=== PATIENT | male | born 1970 | race Caucasian/White ===

== ENCOUNTER 2020-01-08 13:47 | Emergency (ER) | payer OTHER, SELFPAY ==
[2020-01-08 14:07] VITALS: BP 159/105; PULSE 110; RESP 16; TEMP 39.5; O2SAT 97
--- NOTE | 2020-01-08 14:36 | ED.GENADULT ---
HPI - General Adult General Chief complaint: Upper Respiratory Infection Stated complaint: dizziness,body aches,chills Time Seen by Provider: 01/08/20 14:36 Source: patient Mode of arrival: ambulatory Limitations: no limitations History of Present Illness HPI narrative: 49-year-old male patient presents to the [facility] with complaints of fever and muscle aches that started yesterday. Patient states that Wednesday they went out to [facility] to go camping and celebrate the holiday with family. Patient states that they ended up coming back on Wednesday. Patient states he felt like he had some muscle pain last night but just ignored it and went on with his day today. Patient states he went out to mow the yard and when he came back and he states that the muscle pain and joint pain were worse with chills and a fever. Patient states he did take his fever at home and it was at 102. Patient states that his is immunocompromise because she has history of RA. Patient states no chest pain or shortness of breath. No tick bites that he is aware of. No rashes that he is aware of. Related Data Home Medications Medication Instructions Recorded Confirmed allopurinol 100 mg PO DIRECTED 01/08/20 01/08/20 Allergies Allergy/AdvReac Type Severity Reaction Status Date / Time No Known Allergies Allergy Unverified 01/08/20 14:02 Review of Systems Review of Systems: Narrative: CONSTITUTIONAL: Positive fever, chills, denies sweats. Positive fatigue EYES: Denies visual changes, redness, or discharge. ENT: Denies rhinorrhea, congestion, sore throat, or otalgia. CARDIOVASCULAR: Denies chest pain, palpitations, or edema. RESPIRATORY: Denies cough or dyspnea. GASTROINTESTINAL: Denies abdominal pain, nausea, vomiting, or diarrhea. GENITOURINARY: Denies dysuria or hematuria. SKIN: Denies rash or itching. MUSCULOSKELETAL: Denies back pain, positive joint pain, positive myalgia. NEUROLOGIC: Denies headache, numbness, or weakness. PSYCHIATRIC: Denies anxiety or depression. PMFSH Comments At the time of my signature I agree with nursing past medical history, surgical, social, and family history. There is no relevant family history pertinent to the presenting complaint. Exam Narrative: Exam Narrative: GENERAL: ill-appearing, well-nourished, and in no acute distress. HEAD: Normocephalic, atraumatic. EYES: PERRLA and EOMI. ENT: Nares clear, no rhinorrhea or epistaxis. Mucous membranes moist. Posterior pharynx no erythema, tonsillar edema, exudates or lesions present NECK: Supple. No lymphadenopathy CHEST: Clear to auscultation. No respiratory distress. Patient able talk in clear complete sentences. HEART: Regular rate and rhythm. No murmur heard. Normal peripheral pulses. ABDOMEN: Soft, nontender, nondistended, normal active bowel sounds. EXTREMITIES: Normal range of motion. No edema. SKIN: Warm, dry, no rash. NEURO: No focal deficits. Alert and oriented x3. Course Vital Signs Vital signs: Vital Signs Temperature 39.5 C H 01/08/20 14:07 Pulse Rate 110 H 01/08/20 14:07 Respiratory Rate 16 01/08/20 14:07 Blood Pressure 159/105 H 01/08/20 14:07 Pulse Oximetry 97 01/08/20 14:07 Temperature 39.5 C H 01/08/20 14:07 Pulse Rate 110 H 01/08/20 14:07 Respiratory Rate 16 01/08/20 14:07 Blood Pressure 159/105 H 01/08/20 14:07 Pulse Oximetry 97 01/08/20 14:07 Vital signs reviewed. The patient has been informed that they may have pre-hypertension or Hypertension based on a BP reading in the department. I recommend that the patient call the primary care provider listed on their discharge instructions or a physician of their choice this week to arrange follow up for further evaluation of possible pre-hypertension or Hypertension Medical Decision Making Differential Diagnosis Differential Diagnosis: Differential diagnosis: Allergic rhinitis, chronic sinusitis, tonsillitis, acute sinusitis, infectious mononucl
== END 2020-01-08 14:56 | disposition home or self-care (01) ==
PROVIDERS: Emergency Provider Nurse Practitioner Family; PCP Family Medicine
DX: M79.10 Myalgia, unspecified site (principal); R50.9 Fever, unspecified; Z20.828 Contact with and (suspected) exposure to other viral communicable diseases
CPT/HCPCS: 99213; G0463

== ENCOUNTER 2020-04-29 00:47 | Outpatient (CLI) | payer OTHER, SELFPAY ==
[2020-04-29 16:30] LABS: SARS-CoV-2 RNA PCR Negative
== END 2020-04-29 00:48 | disposition home or self-care (01) ==
LOC: ANHCOVIDDT 00:47
PROVIDERS: PCP Family Medicine; Visit Provider Internal Medicine Critical Care Medicine
DX: Z01.812 Encounter for preprocedural laboratory examination (principal); Z20.818 Contact with and (suspected) exposure to other bacterial communicable diseases
CPT/HCPCS: 87635; C9803; U0003

== ENCOUNTER 2020-05-01 07:15 | Outpatient (CLI) | payer OTHER, SELFPAY ==
--- NOTE | 2020-06-03 13:50 | WPDSLEEPSTUD ---
Sleep Study Date of Study: 05/01/20 Ordering Provider: Misbah Harp MD Interpreting Physician: Madeline Camarena MD Sleep Study Type: Split Polysomnogram Height: 1.88 m Weight: 145.15 kg Body Mass Index: 41.1 [place]: 5 Reason for Sleep Study Hypersomnia; history of sleep apnea, has been on CPAP in the past at 10 cm * basic sleep study February 27, 2010; mild obstructive sleep apnea with an AHI of 7.1, heavy snoring and oxygen desaturation to 89% * CPAP titration April 01, 2010; optimal pressure 10 cm Sleep History Ryley Bustillo is a 49 yeat-old man with a prior history of a sleep study 10 years ago. See above; was diagnosed in 2009. His sleep study was performed as part of the [employer] physical there is a positive family history with his father being treated for sleep apnea. He frequently snores and is frequently loud enough that others complain about it. He rarely awakens at night with heartburn, belching or coughing. He does not awaken from sleep feeling short of breath. He occasionally has trouble sleep with a cold. He does not gasp for breath at night. He rarely has breathing problems reported to him at night by others. He denies sweating excessively at night or having palpitations or noticing his heart pounding irregularly at night. He rarely falls asleep during the day, rarely involuntarily, never while driving. He does not have loss of muscle tone was strong emotion. He rarely has daytime difficulties due to excessive sleepiness, works as a local company intermodal truck driver. He never feels paralyzed on waking or falling asleep. He rarely has vivid dreamlike scenes upon awakening or falling asleep. He has never a freight to go to sleep. He does not have nightmares. He rarely remembers his dreams. He rarely has racing thoughts, feelings of sadness depression or muscular tension. He occasionally has anxiety. He occasionally notices parts of his body jerking and he occasionally kicks at night. He rarely has crawling and aching feelings in his legs at night and rarely has leg pain at night. He does not have morning jaw pain. He occasionally grinds his teeth at night. He rarely is bothered by pain during the day. He never is awakened by pain at night. He frequently wakes up feeling stiff in the morning occasionally with sore achy muscles rarely with pain in the neck and spine. He has fatigue. Normal bedtime is between 11:00 p.m. and 12 midnight, taking 5-10 minutes to fall asleep. He often wakes 2 or 3 times at night briefly. When this happens he gets a drink of water. He wakes in the morning between 6 and 7:00 a.m.. He estimates 6-7 hours of sleep per night. He does take naps in the evening. A short nap may be refreshing. Most of the time he feels better in the afternoons compared to the mornings. Habits: Prior history of tobacco quit 10 years ago. Caffeine once a week. Alcohol occasionally on the weekends. No recreational drugs. [facility] Past Medical History Medical History (Updated 06/03/20 @ 14:28 by Madeline Camarena MD) GERD without esophagitis Gout Hyperglycemia Hypertension Obstructive sleep apnea Medications Home Medications Medication Instructions Recorded Confirmed Type allopurinol 100 mg PO DIRECTED 01/08/20 01/08/20 History doxycycline hyclate 100 mg PO BID 14 Days #28 tablet 01/08/20 Rx Medications: The patient is supplied a medication list that was hand written including the followin. amlodipine 5 mg a day 2. metformin HCL ER 500 mg 3. allopurinol 100 mg twice a day 4. [facility] 12 hour cold and sinus medication Sleep Procedure This test was performed using the [employer] multiple channel system including EOG, EEG, submental EMG, EKG, nasal and oral airflow using thermistors and nasal pressure sensors, chest and abdominal belts for body position data, and pulse oximetry. Video monitoring was also performed. The study was scored using CMS guidelines. The AHI in the baseline was 75.3, extremely high.
[2020-06-03 14:29] VITALS: BMI 41.1
== END 2020-05-01 07:16 | disposition home or self-care (01) ==
PROVIDERS: PCP Family Medicine; Visit Provider Family Medicine
DX: G47.33 Obstructive sleep apnea (adult) (pediatric) (principal)
CPT/HCPCS: 95811